=== PATIENT | female | born 1955 | race Caucasian/White ===

== ENCOUNTER → 2016-07-30 | Outpatient (CLI) | payer BC ==
--- NOTE | 2016-07-30 14:12 | MM ---
Reason for exam: history of breast cancer, conservation therapy. Last mammogram was performed 1 year and 1 month ago. History: Patient is postmenopausal, has history of breast cancer at age 59, and had first child at age 36. Family history of breast cancer in mother at age 60, breast cancer in maternal aunt, and breast cancer in maternal cousin. Malignant US biopsy breast VAD RT of the right breast, June 23, 2015. Lumpectomy of the right breast, 2015. Chemotherapy, 2016. Radiation therapy of the right breast, 2016. Physical Findings: Nurse did not find any significant physical abnormalities on exam. MG 3D Diag Mammo W/Cad ABDULAZIZ Bilateral CC and MLO view(s) were taken. Prior study comparison: July 05, 2015, bilateral MR breast bilat wo/w con. June 23, 2015, right breast MG diagnostic mammo RT wo CAD. June 13, 2015, bilateral MG 3d diag mammo w/cad ABDULAZIZ. May 22, 2013, mammogram, performed at [facility]. There are scattered fibroglandular densities. Post surgical and post therapy changes in the right breast. There are a few new punctate calcifications at the lumpectomy site that could represent early dystrophic calcifications and can be reassessed in 6 months. These results were verbally communicated with the patient and result sheet given to the patient on 07/30/16. ASSESSMENT: Probably benign, BI-RAD 3 RECOMMENDATION: Follow-up diagnostic mammogram of the right breast in 6 months. [facility]
== END | disposition home or self-care (01) ==
LOC: RADMAMWWP 12:48
PROVIDERS: ATTEND Radiology Diagnostic Radiology
DX: C50.911 Malignant neoplasm of unspecified site of right female breast (principal)
CPT/HCPCS: G0204; G0279

== ENCOUNTER → 2016-11-13 | Outpatient (CLI) | payer BC ==
--- NOTE | 2016-11-14 07:13 | CT ---
EXAMINATION TYPE: CT chest w con DATE OF EXAM: 11/13/2016 COMPARISON: NONE HISTORY: Hemoptysis, shortness of breath and hoarseness. CT DLP: 320.90 mGycm Automated exposure control for dose reduction was used. CONTRAST: CT scan of the chest is performed with IV Contrast, patient injected with 100 mL of Omnipaque 300. FINDINGS: There has been a previous lumpectomy on the right. There are vascular calcifications. There is a 2.1 cm spiculated mass within the lateral aspect of the right breast. This is likely postsurgic al change. There is atelectasis or consolidation in the right middle lobe. Lungs otherwise clear. There is no significant axillary, internal mammary, mediastinal or hilar adenopathy. There is no pleural or pericardial fluid. The heart is upper limits of normal in size. There is a small hiatal hernia. Visualized upper abdominal structures are otherwise normal. There is degenerative disc disease and mild hypertrophic spondylosis within the dorsal spine. IMPRESSION: 1. STATUS POST RIGHT-SIDED LUMPECTOMY. SPICULATED MASS IS LIKELY POSTSURGICAL SCARRING. 2. ATELECTASIS OR CONSOLIDATION, RIGHT MIDDLE LOBE. 3. SMALL HIATAL HERNIA. 4. DEGENERATIVE CHANGES WITHIN THE SPINE.
== END | disposition home or self-care (01) ==
LOC: RADCTMAIN 19:24
PROVIDERS: ATTEND Internal Medicine Geriatric Medicine
DX: R06.02 Shortness of breath (principal); R06.00 Dyspnea, unspecified; R04.2 Hemoptysis; Z90.11 Acquired absence of right breast and nipple
CPT/HCPCS: 71260; Q9967

== ENCOUNTER → 2017-01-30 | Outpatient (CLI) | payer BC ==
--- NOTE | 2017-01-30 13:39 | MM ---
Reason for exam: follow-up at short interval from prior study. Last mammogram was performed 6 months ago. History: Patient is postmenopausal, has history of breast cancer at age 59, and had first child at age 36. Family history of breast cancer in mother at age 60, breast cancer in maternal aunt, and breast cancer in maternal cousin. Malignant US biopsy breast VAD RT of the right breast, June 23, 2015. Lumpectomy of the right breast, 2016. Chemotherapy, 2016. Radiation therapy of the right breast, 2016. Physical Findings: Nurse did not find any significant physical abnormalities on exam. MG 3D Diag Mammo W/Cad RT CC, ML, and XCCL view(s) were taken of the right breast. Prior study comparison: July 30, 2016, bilateral MG 3d diag mammo w/cad ABDULAZIZ. June 23, 2015, right breast MG diagnostic mammo RT wo CAD. There are scattered fibroglandular densities. Post surgical and post therapy changes in the right breast. Post surgical scar far posterior upper outer quadrant. Surgical clip are present with stable punctate calcifications noted to have been new on 07/30/16. Additional 6 month follow up recommended. These results were verbally communicated with the patient and result sheet given to the patient on 01/30/17. ASSESSMENT: Probably benign, BI-RAD 3 RECOMMENDATION: Follow-up diagnostic mammogram of both breasts in 6 months.
== END | disposition home or self-care (01) ==
LOC: RADMAMWWP 12:59
PROVIDERS: ATTEND Radiology Diagnostic Radiology
DX: Z08 Encounter for follow-up examination after completed treatment for malignant neoplasm (principal); Z85.3 Personal history of malignant neoplasm of breast
CPT/HCPCS: G0206; G0279

== ENCOUNTER → 2017-07-31 | Outpatient (CLI) | payer BC ==
--- NOTE | 2017-07-31 13:47 | MM ---
Reason for exam: follow-up at short interval from prior study. Last mammogram was performed 6 months ago. History: Patient is postmenopausal, has history of breast cancer at age 59, and had first child at age 36. Family history of breast cancer in mother at age 60, breast cancer in maternal aunt, and breast cancer in maternal cousin. Malignant US biopsy breast VAD RT of the right breast, June 23, 2015. Lumpectomy of the right breast, 2015. Chemotherapy, 2016. Radiation therapy of the right breast, 2016. Physical Findings: Nurse did not find any significant physical abnormalities on exam. MG 3D Diag Mammo W/Cad ABDULAZIZ Bilateral CC and MLO view(s) were taken. Prior study comparison: January 30, 2017, right breast MG 3d diag mammo w/cad RT. July 30, 2016, bilateral MG 3d diag mammo w/cad ABDULAZIZ. There are scattered fibroglandular densities. Mid skin thickening right breast, stable. Scar marker. Post surgical changes right breast. No significant new findings when compared with previous films. These results were verbally communicated with the patient and result sheet given to the patient on 07/31/17. ASSESSMENT: Benign, BI-RAD 2 RECOMMENDATION: Follow-up diagnostic mammogram of both breasts in 1 year.
== END | disposition home or self-care (01) ==
LOC: RADMAMWWP 13:04
PROVIDERS: ATTEND Radiology Diagnostic Radiology
DX: C50.911 Malignant neoplasm of unspecified site of right female breast (principal)
CPT/HCPCS: 77066; G0279

== ENCOUNTER → 2018-08-01 | Outpatient (CLI) | payer BC ==
--- NOTE | 2018-08-01 12:03 | MM ---
Reason for exam: additional evaluation requested from prior study. Last mammogram was performed 1 year ago. History: Patient is postmenopausal, has history of breast cancer at age 59, and had first child at age 36. Family history of breast cancer in mother at age 60, breast cancer in maternal aunt, and breast cancer in maternal cousin. Malignant US biopsy breast VAD RT of the right breast, June 23, 2015. Lumpectomy of the right breast, 2016. Chemotherapy, 2016. Radiation therapy of the right breast, 2016. Physical Findings: Nurse did not find any significant physical abnormalities on exam. MG 3D Diag Mammo W/Cad ABDULAZIZ Bilateral CC and MLO view(s) were taken. XCCL view(s) were taken of the right breast. Prior study comparison: July 31, 2017, bilateral MG 3d diag mammo w/cad ABDULAZIZ. January 30, 2017, right breast MG 3d diag mammo w/cad RT. The breast tissue is heterogeneously dense. This may lower the sensitivity of mammography. Stable post operative changes in the right breast. No significant new findings when compared with previous films. These results were verbally communicated with the patient and result sheet given to the patient on 08/01/18. ASSESSMENT: Benign, BI-RAD 2 RECOMMENDATION: Follow-up diagnostic mammogram of both breasts in 1 year.
--- NOTE | 2018-08-01 12:35 | BD ---
EXAMINATION TYPE: Axial Bone Density DATE OF EXAM: 08/01/2018 COMPARISON: NONE CLINICAL HISTORY: Height: 5 FT 1/4 IN Weight: 178 FRAX RISK QUESTIONS: RISK FACTORS HISTORY OF: Active: YES Postmenopausal woman: AGE 49-49 Lost more than 2 inches in height since high school: YES MEDICATIONS: Additional Medications: PANTOPRAZOLE, METOPROLOL, SIMVASTATIN, FLUOXETINE HCL Additional History: EXAM MEASUREMENTS: Bone mineral densitometry was performed using the [employer] System. Bone mineral density as measured about the Lumbar spine is: ----- L1-L4(G/cm2): 1.276 T Score Values are as follows: ----- L2: 1.1 ----- L3: 1.2 ----- L4: 0.1 ----- L1-L4: 0.8 Bone mineral density about the R hip (g/cm2): 0.932 Bone mineral density about the L hip (g/cm2): 0.943 T Score values are as follows: -----R Neck: -0.7 -----L Neck: -0.8 -----R Total: -1.1 -----L Total: -0.8 BASELINE IMPRESSION: No evidence for osteoporosis or osteopenia. NOTE: T-SCORE=SD OF THE YOUNG ADULT MEAN.
== END | disposition home or self-care (01) ==
LOC: RADMAMWWP 09:57
PROVIDERS: ATTEND Radiology Diagnostic Radiology
DX: Z08 Encounter for follow-up examination after completed treatment for malignant neoplasm (principal); M81.0 Age-related osteoporosis without current pathological fracture; Z85.3 Personal history of malignant neoplasm of breast
CPT/HCPCS: 77062; 77066; 77080

== ENCOUNTER → 2019-10-08 | Outpatient (CLI) | payer BC ==
--- NOTE | 2019-10-12 08:31 | MM ---
Reason for exam: additional evaluation requested from prior study. Last mammogram was performed 1 year and 2 months ago. History: Patient is postmenopausal, has history of breast cancer at age 59, and had first child at age 36. Family history of breast cancer in mother at age 60, breast cancer in maternal aunt, and breast cancer in maternal cousin. Malignant US biopsy breast VAD RT of the right breast, June 23, 2015. Lumpectomy of the right breast, 2016. Chemotherapy, 2016. Radiation therapy of the right breast, 2016. Physical Findings: Nurse did not find any significant physical abnormalities on exam. MG 3D Diag Mammo W/Cad ABDULAZIZ Bilateral CC and MLO view(s) were taken. Prior study comparison: August 01, 2018, bilateral MG 3d diag mammo w/cad ABDULAZIZ. July 31, 2017, bilateral MG 3d diag mammo w/cad ABDULAZIZ. The breast tissue is heterogeneously dense. This may lower the sensitivity of mammography. Finding: Architectural distortion in the upper outer quadrant, posterior position of the right breast consistent with known excisional changes. There is no discrete abnormality. These results were verbally communicated with the patient and result sheet given to the patient on 10/08/19. ASSESSMENT: Benign, BI-RAD 2 RECOMMENDATION: Follow-up diagnostic mammogram of both breasts in 1 year.
== END | disposition home or self-care (01) ==
LOC: RADMAMWWP 13:35
PROVIDERS: ATTEND Internal Medicine Geriatric Medicine
DX: C50.911 Malignant neoplasm of unspecified site of right female breast (principal)
CPT/HCPCS: 77062; 77066

== ENCOUNTER → 2019-10-20 | Outpatient (CLI) | payer BC ==
--- NOTE | 2019-10-21 07:54 | CTL ---
EXAMINATION TYPE: CT Low Dose Lung DATE OF EXAM ORDERED: 10/20/2019 HISTORY: Personal history tobacco use, nicotine dependence. Lung cancer screening CT DLP: 83.[address] CTDI: 2.4 mGy Automated exposure control for dose reduction was used. SCREENING VISIT: 1 COMPARISON: Prior chest CT 11/13/2016 TECHNIQUE: Low dose computed tomography scan was performed through the chest at 1 mm thick sections a nd reconstructed images in the coronal plane at [address] DIAGNOSTIC QUALITY: Satisfactory FINDINGS: LUNG NODULES: None. LUNGS: COPD: Severity: None Fibrosis: Severity: Mild and stable Lymph nodes: Normal Other findings: Aortic calcification consistent with atherosclerotic change. RIGHT PLEURAL SPACE: Effusion: None Calcification: None Thickening: Subpleural thickening along the anterior right upper lobe is a stable finding and may be due to post treatment change. Pneumothorax: None LEFT PLEURAL SPACE: Effusion: None Calcification: None Thickening: None Pneumothorax: None HEART: Heart Size: Normal with possible mitral annular calcification Coronary calcification: Moderate Pericardial effusion: None OTHER FINDINGS: Upper abdomen: Small hiatal hernia is present. Colonic interposition anterior to the liver is present . Bony thorax: Multilevel thoracic spondylosis is present. Supraclavicular region: Unremarkable Other: Surgical clips present in the right axilla IMPRESSION: Negative FOLLOW UP CT CHEST RECOMMENDATION: [address] LUNG RAD: 1
== END | disposition home or self-care (01) ==
LOC: RADCTMAIN 17:56
PROVIDERS: ATTEND Internal Medicine Geriatric Medicine
DX: Z12.2 Encounter for screening for malignant neoplasm of respiratory organs (principal); F17.210 Nicotine dependence, cigarettes, uncomplicated

== ENCOUNTER → 2020-10-10 | Outpatient (CLI) | payer BC ==
--- NOTE | 2020-10-11 08:34 | MM ---
Reason for exam: additional evaluation requested from prior study. Last mammogram was performed 1 year ago. History: Patient is postmenopausal, has history of breast cancer at age 59, and had first child at age 36. Family history of breast cancer in mother at age 60, breast cancer in maternal aunt at age 60, and breast cancer in maternal cousin. Malignant US biopsy breast VAD RT of the right breast, June 23, 2015. Lumpectomy of the right breast, 2015. Chemotherapy, 2016. Radiation therapy of the right breast, 2016. Physical Findings: Nurse did not find any significant physical abnormalities on exam. MG 3D Diag Mammo W/Cad ABDULAZIZ Bilateral CC and MLO view(s) were taken. Prior study comparison: October 08, 2019, bilateral MG 3d diag mammo w/cad ABDULAZIZ. August 01, 2018, bilateral MG 3d diag mammo w/cad ABDULAZIZ. There are scattered fibroglandular densities. Post operative changes right breast. These results were verbally communicated with the patient and result sheet given to the patient on 10/10/20. ASSESSMENT: Benign, BI-RAD 2 RECOMMENDATION: Follow-up diagnostic mammogram of both breasts in 1 year.
== END | disposition home or self-care (01) ==
LOC: RADMAMWWP 14:49
PROVIDERS: ATTEND Internal Medicine Geriatric Medicine
DX: N64.89 Other specified disorders of breast (principal); Z78.0 Asymptomatic menopausal state; Z80.3 Family history of malignant neoplasm of breast; Z85.3 Personal history of malignant neoplasm of breast
CPT/HCPCS: 77062; 77066

== ENCOUNTER → 2021-02-03 | Outpatient (CLI) | payer BC ==
--- NOTE | 2021-02-04 18:02 | CTL ---
EXAMINATION TYPE: CT Low Dose Lung DATE OF EXAM ORDERED: 02/03/2021 HISTORY: 30 pack-year smoking history. Lung cancer screening CT DLP: 89.[address] CTDI: 2.6 mGy Automated exposure control for dose reduction was used. COMPARISON: CT lung cancer screening 10/19/2020 TECHNIQUE: Low dose computed tomography scan was performed through the chest at 1 mm thick sections a nd reconstructed images in multiple planes at 1 mm and [address] DIAGNOSTIC QUALITY: Satisfactory FINDINGS: LUNG NODULES: None. Central airways are normal course and caliber. Small amount of debris/mucus along the left lateral mi d-tracheal wall. No focal consolidations, pleural effusions, or pneumothorax. Linear densities within the right middle lobe which likely represents subsegmental atelectasis and/or scarring, similar to p rior. Cardiac size appears within normal limits. No pericardial effusion. Moderate coronary artery calcific ations and/or stents. Moderate atherosclerotic calcifications of the aortic arch and descending thora cic aorta without aneurysm. Main pulmonary arteries are of normal caliber. Mitral annular calcificati ons and aortic annular calcifications are present. No mediastinal or axillary lymphadenopathy. Limited views of the upper abdomen demonstrate small hiatal hernia and are otherwise unremarkable. Mo derate to advanced multilevel degenerative changes of the visualized thoracic spine, which appears si milar to prior. No vertebral body height loss. IMPRESSION: 1. No pulmonary nodules. 2. Moderate coronary artery calcifications. CT LUNG RAD AND CT CHEST RECOMMENDATION: Lung-RADS Category 1s - negative. Continued annual lung canc er screening with low-dose CT chest S Modifier (other clinically significant findings): Moderate coronary artery calcifications
== END | disposition home or self-care (01) ==
LOC: RADCTMAIN 17:21
PROVIDERS: ATTEND Internal Medicine Geriatric Medicine
DX: Z12.2 Encounter for screening for malignant neoplasm of respiratory organs (principal); Z87.891 Personal history of nicotine dependence; I25.10 Atherosclerotic heart disease of native coronary artery without angina pectoris
CPT/HCPCS: 71271

== ENCOUNTER → 2021-02-22 | Outpatient (CLI) | payer BC ==
--- NOTE | 2021-02-22 17:04 | ECHOS ---
STRESS ECHOCARDIOGRAM DATE OF PROCEDURE: 02/22/2021 INDICATIONS: Chest pain. BASELINE HEART RATE: 67 BASELINE BLOOD PRESSURE: 143/86 MAXIMUM HEART RATE: 139 MAXIMUM BLOOD PRESSURE: 176/84 85% MPHR: 133 100% MPHR: 156 METS: 5.7 MAXIMUM STAGE REACHED: II TOTAL EXERCISE TIME: 6 min CLINICAL INFORMATION: STRESS DATA: Heart rate 67, pressure is 143/98 mmHg. Baseline EKG showed sinus mechanism. The patient exercised on the treadmill according to [employer] protocol for a total of 6 minutes and achieved 5.7 METS. Max heart rate was 139, which is about 89% of maximum predicted heart rate, and maximum blood pressure was 176/84 mmHg. Clinically the patient did not have any symptoms of chest pain or chest discomfort and the EKG did not show any significant ST or T-wave abnormalities concerning for ischemia. ANALYSIS: Echocardiogram images from parasternal long axis view, parasternal short axis view, apical 4-chamber and apical 2-chamber views were obtained as the baseline images at the peak of the heart rate as well as on recovery. The echocardiogram images showed good augmentation in the left ventricular systolic function without any evidence of wall motion abnormalities concerning for ischemia. CONCLUSION: 1. Good exercise tolerance. 2. Normal EKG in response to exercise. 3. Normal echocardiogram in response to exercise. 4. Essentially normal stress echocardiogram for the patient. MMODL / IJN: [id number] /
== END | disposition home or self-care (01) ==
LOC: RADNMMAIN 09:12
PROVIDERS: ATTEND Internal Medicine Geriatric Medicine
DX: R07.9 Chest pain, unspecified (principal)
CPT/HCPCS: 93351

== ENCOUNTER → 2021-10-25 | Outpatient (CLI) | payer MEDICARE ==
--- NOTE | 2021-10-25 14:44 | MM ---
Reason for Exam: Additional evaluation requested from prior study. Last mammogram was performed 1 year(s) and 1 month(s) ago. Patient History: Menarche at age 12. First Full-Term at age 36. Late child-bearing (after 30). Postmenopausal. Breast cancer, right, age 59. 2016, Lumpectomy on the Right side. 06/23/2015, Malignant Core Biopsy on the right side. 2016, Chemotherapy. 2016, Radiation Therapy on the right side. Maternal cousin had breast cancer. Maternal aunt had breast cancer, age 60. Mother had breast cancer, age 60. Prior Study Comparison: 01/30/2017 Right Diagnostic Mammogram, [facility]. 07/31/2017 Bilateral Diagnostic Mammogram, [facility]. 08/01/2018 Bilateral Diagnostic Mammogram, [facility]. 10/08/2019 Bilateral Diagnostic Mammogram, [facility]. 10/10/2020 Bilateral Diagnostic Mammogram, [facility]. Tissue Density: There are scattered fibroglandular densities. Findings: Analyzed By CAD. Post treatment changes to the right breast are redemonstrated posterior upper outer aspect. Benign-appearing left axillary lymph nodes are redemonstrated. No suspicious new mass or worrisome cluster of microcalcification in either breast. Overall Assessment: Benign, BI-RAD 2 Management: Screening Mammogram of both breasts in 1 year. A clinical breast exam by your physician is recommended on an annual basis and results should be correlated with mammographic findings. This exam should not preclude additional follow-up of suspicious palpable abnormalities. Results were given to the patient verbally at the time of exam. Electronically signed and approved by: Cristhian Grimes M.D.
== END | disposition home or self-care (01) ==
LOC: RADMAMWWP 14:15
PROVIDERS: ATTEND Internal Medicine Geriatric Medicine
DX: R92.8 Other abnormal and inconclusive findings on diagnostic imaging of breast (principal); Z78.0 Asymptomatic menopausal state; Z80.3 Family history of malignant neoplasm of breast
CPT/HCPCS: 77066; G0279; 77062

== ENCOUNTER → 2022-11-27 | Outpatient (CLI) | payer MEDICARE, BC ==
--- NOTE | 2022-11-28 08:06 | MM ---
Reason for Exam: Screening (asymptomatic). Last mammogram was performed 1 year(s) and 1 month(s) ago. Patient History: Menarche at age 12. First Full-Term at age 36. Late child-bearing (after 30). Postmenopausal. Breast cancer, right, age 59. Previous chest radiation therapy. Previous chemotherapy. 2016, Lumpectomy on the Right side. 06/23/2015, Malignant Core Biopsy on the right side. 2016, Chemotherapy. 2016, Radiation Therapy on the right side. Maternal cousin had breast cancer, age 60. Maternal aunt had breast cancer, age 60. Mother had breast cancer, age 60. Prior Study Comparison: 10/08/2019 Bilateral Diagnostic Mammogram, [facility]. 10/10/2020 Bilateral Diagnostic Mammogram, [facility]. 10/25/2021 Bilateral MG 3D diag mammo w/cad ABDULAZIZ, [facility]. Tissue Density: There are scattered fibroglandular densities. Findings: Analyzed By CAD. There is no suspicious group of microcalcifications or new suspicious mass in either breast. Post lumpectomy changes upper outer quadrant right breast unchanged. Overall Assessment: Benign, BI-RAD 2 Management: Screening Mammogram of both breasts in 1 year. . Patient should continue monthly self-breast exams. A clinical breast exam by your physician is recommended on an annual basis. This exam should not preclude additional follow-up of suspicious palpable abnormalities. Note on Rama scores and lifetime risk: 1. A Rama score greater than 3% is considered moderate risk. If this is the case, consider specialist referral to assess eligibility for a risk reducing agent. 2. If overall lifetime risk for the development of breast cancer is 20% or higher, the patient may qualify for future screening with alternating mammogram and breast MRI. Electronically signed and approved by: Barron Paz M.D. Radiologis
== END | disposition home or self-care (01) ==
LOC: RADMAMWWP 10:21
PROVIDERS: ATTEND Internal Medicine Geriatric Medicine
DX: Z12.31 Encounter for screening mammogram for malignant neoplasm of breast (principal); Z78.0 Asymptomatic menopausal state; Z80.3 Family history of malignant neoplasm of breast; Z85.3 Personal history of malignant neoplasm of breast
CPT/HCPCS: 77063; 77067

== ENCOUNTER → 2023-12-25 | Outpatient (CLI) | payer MEDICARE, BC ==
[2023-12-25 15:35] LABS: Basophils # (A) 0.03 X 10*3/uL (0.00-0.10); Basophils % (A) 0.6 %; Eosinophils # (A) 0.25 X 10*3/uL (0.04-0.35); Eosinophils % (A) 5.1 %; HCT 38.4 % (37.2-46.3); HGB 12.7 g/dL (12.0-15.0); Lymphocytes # (A) 1.01 X 10*3/uL (0.90-5.00); Lymphocytes % (A) 20.5 %; MCHC 33.1 g/dL (32.0-37.0); MCV 90.6 FL (80.0-97.0); Monocytes # (A) 0.35 X 10*3/uL (0.20-1.00); Monocytes % (A) 7.1 %; NRBC Per 100 WBC 0 X 10*3/uL (0.00-0.01); Neutrophils # (A) 3.28 X 10*3/uL (1.80-7.70); Neutrophils % (A) 66.5 %; Platelet Count 275 X 10*3/uL (140-440); RBC 4.24 X 10*6/uL (4.10-5.20); RDW 12.2 % (11.5-14.5); WBC 4.93 X 10*3/uL (4.50-10.00)
[2023-12-25 15:57] LABS: ALT 24 U/L (8-44); AST 23 U/L (13-35); Albumin 4.7 g/dL (3.8-4.9); Albumin/Globulin Ratio 2.24 Ratio (1.60-3.17); Alkaline Phosphatase 86 U/L (41-126); BUN/Creat Ratio 18.86 Ratio (12.00-20.00); Blood Urea Nitrogen 13.2 mg/dL (9.0-27.0); Calcium 9.6 mg/dL (8.7-10.3); Chloride 99 mmol/L (96-109); Chol/HDL Ratio 4.11 Ratio; Globulin 2.1 g/dL (1.6-3.3); Glucose 109 mg/dL (70-110); LDL Cholesterol,Calculated 141.2 mg/dL (0.0-131.0); Potassium 4.8 mmol/L (3.5-5.5); Sodium 136 mmol/L (135-145); T4, Free (Free Thyroxine) 0.98 ng/dL (0.80-1.80); Total Bilirubin 0.5 mg/dL (0.3-1.2); Total Protein 6.8 g/dL (6.2-8.2)
--- NOTE | 2023-12-27 16:38 | BD ---
EXAMINATION TYPE: Axial Bone Density DATE OF EXAM: 12/25/2023 CLINICAL HISTORY: 68 years old Female. ICD-10 CODE: M81.0 Age related osteoporosis Height: 5 ft Weight: 175 FRAX RISK QUESTIONS: Alcohol (3 or more units per day): no Family History (Parent hip fracture): no Glucocorticoids (More than 3mos): no (Ex: prednisone, prednisolone, methylprednisolone, dexamethasone, and hydrocortisone). History of Fracture in Adulthood: no Secondary Osteoporosis: 1. Type 1 Diabetes: no 2. Hyperthyroidism: no 3. Menopause before 45: no 4. Malnutrition: no 5. Chronic liver disease: no Rheumatoid Arthritis: no Current Tobacco Use: vape RISK FACTORS HISTORY OF: Surgery to Spine/Hip(right/left)/Wrist (right/left): no MEDICATIONS: Thyroid Medications: none Osteoporosis Medications: none EXAM MEASUREMENTS: Bone mineral densitometry was performed using the [employer] System. Bone mineral density as measured about the Lumbar spine is: ----- L1-L4(G/cm2): 1.387 T Score Values are as follows: ----- L1: 2.2 ----- L2: 1.3 ----- L3: 1.6 ----- L4: 1.6 ----- L1-L4: 1.7 Z Score Values are as follows: ----- L1: 3.4 ----- L2: 2.5 ----- L3: 2.7 ----- L4: 2.8 ----- L1-L4: 2.9 Bone mineral density has: increased 8.7 % since study of: 2019 Bone mineral density about the R hip (g/cm2): 0.844 Bone mineral density about the L hip (g/cm2): 0.854 T Score values are as follows: -----R Neck: -1.4 -----L Neck: -1.3 -----R Total: -1.3 -----L Total: -0.9 Z Score values are as follows: -----R Neck: -0.1 -----L Neck: -0.1 -----R Total: -0.3 -----L Total: 0.1 Bone mineral density has: decreased -2.4 % since study of: 2019 FRAX%s: The graph provided illustrates a 8.8 % chance for a major osteoporotic fx and a 1.6 % chanc e for the hips probability for fx in 10 years time. IMPRESSION: Osteopenia (T Score between -2.5 and -1). There is slightly increased risk of fracture and the patient may be considered for treatment. Re-Screen 2-5 years. NOTE: T-SCORE=SD OF THE YOUNG ADULT MEAN.
--- NOTE | 2023-12-29 12:07 | MM ---
Reason for Exam: Screening (asymptomatic). Last mammogram was performed 1 year(s) and 1 month(s) ago. Patient History: Menarche at age 12. First Full-Term at age 36. Late child-bearing (after 30). Postmenopausal. Breast cancer, right, age 59. Previous chest radiation therapy. Previous chemotherapy. 2016, Lumpectomy on the Right side. 06/23/2015, Malignant Core Biopsy on the right side. 2016, Chemotherapy. 2016, Radiation Therapy on the right side. Maternal cousin had breast cancer, age 60. Maternal aunt had breast cancer, age 60. Mother had breast cancer, age 60. Prior Study Comparison: 10/10/2020 Bilateral Diagnostic Mammogram, [facility]. 10/25/2021 Bilateral MG 3D diag mammo w/cad ABDULAZIZ, [facility]. 11/27/2022 Bilateral MG 3D screening mammo w/cad, [facility]. Tissue Density: There are scattered areas of fibroglandular density. Findings: Analyzed By CAD. Right breast surgical clips. Right breast: There is no suspicious group of microcalcifications or new suspicious mass. Left breast: There is no suspicious group of microcalcifications or new suspicious mass. Overall Assessment: Benign, BI-RAD 2 Management: Screening Mammogram of both breasts in [address] [facility] will attempt to contact patient to return for supplemental views and ultrasound if indicated. Patient should continue monthly self-breast exams. A clinical breast exam by your physician is recommended on an annual basis. This exam should not preclude additional follow-up of suspicious palpable abnormalities. Note on Rama scores and lifetime risk: 1. A Rama score greater than 3% is considered moderate risk. If this is the case, consider specialist referral to assess eligibility for a risk reducing agent. 2. If overall lifetime risk for the development of breast cancer is 20% or higher, the patient may qualify for future screening with alternating mammogram and breast MRI. Electronically signed and approved by: Abhishek Lopes DO
== END | disposition home or self-care (01) ==
LOC: RADMAMWWP 11:16
PROVIDERS: ATTEND Internal Medicine Geriatric Medicine
DX: Z12.31 Encounter for screening mammogram for malignant neoplasm of breast (principal); R92.323 Mammographic fibroglandular density, bilateral breasts; M81.0 Age-related osteoporosis without current pathological fracture; I10 Essential (primary) hypertension; R73.9 Hyperglycemia, unspecified; E78.2 Mixed hyperlipidemia; R94.6 Abnormal results of thyroid function studies; M85.89 Other specified disorders of bone density and structure, multiple sites; Z78.0 Asymptomatic menopausal state; Z80.3 Family history of malignant neoplasm of breast; Z92.3 Personal history of irradiation
CPT/HCPCS: 36415; 77063; 77067; 77080; 80053; 80061; 83036; 84439; 84443; 85025

== ENCOUNTER → 2024-01-02 | Outpatient (CLI) | payer MEDICARE, BC ==
[2024-01-02 14:52] VITALS: BP 138/81; PULSE 70; RESP 12; TEMP 98
--- NOTE | 2024-01-02 15:34 | P.SLEEP ---
History of Present Illness DATE: 01/02/2024 CONSULTATION/NEW PATIENT EVALUATION HISTORY OF PRESENT ILLNESS/SLEEP-WAKE EVALUATION: 68-year-old lady had been e valuated in the sleep center for insomnia and possible obstructive sleep apnea hypopnea syndrome. SLEEP SCHEDULE: Usually sleep schedule from 11 PM to 10 AM, but patient falling asleep only around 3 AM. FALLING ASLEEP: Significant difficulties with falling asleep, patient used to read in bedroom for several hours before falling asleep. DURING SLEEP: Positive history of snoring and multiple awakenings from sleep up to 5 times with episodes of nocturia. No history of hypnogogical hallucinations, sleep paralysis, or cataplexy. DURING THE DAY/WAKE STATE: In the morning patient wake up tired. [place] sleepiness scale is 6. Patient takes 1 nap around 3 PM. PAST MEDICAL HISTORY: Hypertension, right breast cancer, history of depression. PAST SURGICAL HISTORY: Right breast lumpectomy, radiation and chemotherapy for cancer. MEDICATIONS: Please see below. SOCIAL HISTORY: Please see below. FAMILY HISTORY: Heart problems, asthma, high blood pressure, cancer. REVIEW OF SYSTEMS: Snoring, difficulties to initiate sleep, multiple awakenings from sleep, sleepiness and tiredness during the day. No fevers. No double vision. No recent chest pain. No shortness of breath. No abdominal pain. No bleeding episodes. No blood in urine. No seizure episodes. PHYSICAL EXAMINATION: GENERAL: A pleasant patient without any distress. VITAL SIGNS: Please see below, weight 178 pounds, BMI 33.6. HEENT: PERRLA, EOMI. Evaluation of oropharynx showed tongue protrudes midline, low position of soft palate Mallampati 4. NECK: Supple. No JVD. Thyroid is not palpable. 16 inches in circumference. LUNGS: Clear to percussion and to auscultation. Good air exchange. No wheezing or rhonchi. HEART: S1, S2 regular. No murmurs, gallops or rubs. ABDOMEN: Soft and nontender. Bowel sounds are present. No organomegaly appreciated. EXTREMITIES: No clubbing or cyanosis. BIKE DESIGNER: Awake, alert, and oriented x3. Cranial nerves 2 to 7 intact. There is no fasciculation or atrophy noted. No focal deficits observed. ASSESSMENT: 1. Snoring, multiple awakenings from sleep, extremely low position of soft palate Mallampati 4, wide neck 16 inches in circumference. Obstructive sleep apnea hypopnea syndrome. 2. Psychophysiological insomnia with possible sleep delay syndrome. 3. Hypertension. 4. Acid reflux. 5 hyperlipidemia. 6 . History of depression. 7. History of right breast cancer, s/p lumpectomy, radiation therapy and chemotherapy. 8. Mild obesity, BMI 33.6. PLAN: 1. Polysomnography for evaluation of patient's breathing during sleep. 2. Psychological techniques for treatment of insomnia including stimulus control, paradoxical intention, worry time, no watching clock have been discussed with patient. 3. Preferable position during sleep on the side. 4. No driving if patient feels any sleepiness. Patient is aware of civil and criminal liability for unsafe driving. 5. To increase exposure to the sunlight in the morning after awakenings and avoid especially bluelight in the evening. 6. Watching weight. 7. Following plan after reading sleep study. Thank you very much for referring this patient for consultation. Sincerely, Ranulfo Ocampo MD, PhD, FAASM. Diplomat of [place] [employer], Sleep Medicine Board by [place] [employer] [employer] Ent Physician of [facility] cc: Axel Orantes MD Past Medical History Past Medical History: Cancer, GERD/Reflux, Hyperlipidemia, Hypertension Additional Past Medical History / Comment(s): RIGHT BREAST CANCER (DX JUNE 2015) CHEMO AND RADIATION THERAPY., STATES FREQUENT NAUSEA. History of Any Multi-Drug Resistant Organisms: None Reported Past Surgical History: Breast Surgery Additional Past Surgical History / Comment(s): lumpectomy right breast Past Anesthesia/Blood Transfusion Reactions: No Reported Reaction Additional Past Anesthesia/Blood Transfusion Reaction / Comment(s): NEVER RECEIVED BLOOD TRANSFUSION Past Psychological History: Depression Additional Psychological History / Comment(s): . Smoking Status: Former smoker, Vaper Past Alcohol Use History: Daily Additional Past Alcohol Use History / Comment(s): QUIT SMOKING APPROX 15 YEARS AGO., OCCASIONAL E-CIGARETTE. SMOKED 1/2 PPD FOR 20 YEARS. DRINKS 2 GLASSES OF WINE DAILY. Past Drug Use History: None Reported - Past Family History Mother Family Medical History: Cancer Additional Family Medical History / Comment(s): BREAST CANCER Father Additional Family Medical History / Comment(s): Father at age 82 from possible suicide with history of depression. Brother(s) Family Medical History: No Reported History Additional Family Medical History / Comment(s): . Medications and Allergies Home Medications Medication Instructions Recorded Confirmed Type FLUoxetine HCL [PROzac] 40 mg PO HS 10/21/15 01/02/24 History Metoprolol Succinate [Toprol XL] 25 mg PO HS 10/21/15 01/02/24 History Pantoprazole Sodium [Protonix] 40 mg PO HS 10/21/15 01/02/24 History Simvastatin [Zocor] 40 mg PO HS 10/21/15 01/02/24 History Allergies Allergy/AdvReac Type Severity Reaction Status Date / Time No Known Allergies Allergy Verified 04/04/16 12:56 Physical Exam Vitals: Vital Signs Temp Pulse Resp BP Pulse Ox 01/02/24 14:47 98.0 F 70 12 138/81 95 Intake and Output 01/02/24 01/02/24 01/02/24 06:59 14:59 22:59 Other: Weight 80.739 kg Sleep Note - Sleep Data ESS Total: 6 - Sleep Note Sleep Note: Temperature: 98.0 F Pulse Rate: 70 Respiratory Rate: 12 Blood Pressure: 138/81 SpO2: 95 Height: 5 ft 1 in Weight: 80.739 kg BMI: Neck Circumference: 16
== END ==
LOC: 3 N SLEEP 14:20
PROVIDERS: ATTEND Internal Medicine
CPT/HCPCS: 99211

== ENCOUNTER 2024-01-08 19:46 | Outpatient (CLI) | payer MEDICARE, BC ==
--- NOTE | 2024-01-09 12:24 | P.PCN ---
Description of Procedure: POLYSOMNOGRAPHY REPORT PROCEDURE(S)/DATE(S): Polysomnography 01/08/2024 CLINICAL: Patient has been seen in the sleep center for evaluation of obstructive sleep apnea-hypopnea syndrome. Please see my consultation. Sleep study has been done for evaluation of patient breathing during the sleep. PROCEDURE: The standard montage for clinical polysomnography included the electroencephalogram, the electrooculogram, the mentalis surface electromyography and Lead II cardiography. The respiratory battery consisted of measurements of nasal/buccal air flow, pressure transducer measurements from nose, thoracic and/or abdominal effort and intercostal surface electromyography. Video monitoring has been done to check for any parasomnia events. Nocturnal oxyhemoglobin saturations were obtained by finger oximetry. Step-sunshine titration with positive airway pressure was utilized to control the respiratory events, if necessary. RESULTS: During the diagnostic sleep study sleep efficiency was decreased to 57.4%. Latency to sleep onset was significantly prolonged to 67.0 min. Sleep architecture showed stage NI was normal 6.4%, Delta sleep was was normal 12.6%, REM sleep was high at 30.8%. Respiratory channel showed 0 obstructive apneas, 0 mixed apneas, 6 central apneas, 55 hypopneas with lowest oxygen level 74%. Total apnea hypopnea index was 16.2. Heart rate was in the range between 64 and 73, average 68. EMG showed 0 periodic limb movements per hour. IMPRESSIONS: 1. Moderate obstructive sleep apnea hypopnea syndrome. 2. No significant periodic limb movements have been documented. Please see other impressions from consultation PLAN: 1. The patient will have PAP titration for correction of respiratory abnormalities during the sleep. 2. Losing weight. 3. Sleep hygiene with regular time in bed for at least 7-1/2 hours. 4. No driving if feeling sleepiness. Thank you very much for allowing me to participate in the management of your patient. Sincerely, Ranulfo Ocampo MD, PhD, FAASM. Diplomat of [place] [employer], Sleep Medicine Board by [place] [employer] General Teller of [facility] [place] cc: Axel Orantes MD
== END 2024-01-09 05:35 | disposition home or self-care (01) ==
LOC: 3 N SLEEP 19:46
PROVIDERS: ATTEND Internal Medicine
CPT/HCPCS: 95810

== ENCOUNTER 2024-01-21 19:47 | Outpatient (CLI) | payer MEDICARE, BC ==
--- NOTE | 2024-01-23 11:26 | P.PCN ---
Description of Procedure: CLINICAL: Titration with positive air pressure has been done for correction of respiratory abnormalities during sleep. DESCRIPTION OF PROCEDURE: The standard montage for clinical polysomnography included the electroencephalogram, the electrocardiogram, the mentalis surface electromyography and Lead II cardiography. The respiratory battery consisted of measurements of nasal /buccal air flow, pressure transducer measurements from the nose, thoracic and /or abdominal effort and intercostal surface electromyography. Video monitoring has been done to check for any parasomnia events. Nocturnal oxyhemoglobin saturations were obtained by finger oximetry. Step-sunshine titration with positive airway pressure was utilized to control respiratory events. Raw data of sleep recording has been reviewed and is adequate. RESULTS: Sleep efficiency was extremely short 34.6%. Latency to sleep onset was significantly prolonged to 110.5 minutes.]. Sleep architecture showed stage N1 was prolonged to 13.3%, Delta sleep was absent 0%, REM sleep was normal 27.3%. Heart rate was minimum 61 BPM, maximum 69 BPM, average 64 BPM. EMG showed 37.3 periodic limb movements per hour with 3 micriarousals per hour. PAP titration have been done with CPAP up to the pressure 11 cm H2O. The best results were at the pressure 11 cm H2O. Apnea hypopnea index reduced to 0. IMPRESSION: 1. Obstructive sleep apnea hypopnea syndrome on controle with PAP treatment. 2. Significant periodic limb movements have been documented. Please see other impressions from consultation. PLAN: 1. The patient will have treatment with positive air pressure equipment with the level of pressure AutoPAP 5-11 cm H2O and should use it every night for the whole night. 2. Watching and losing weight. 3. Sleep hygiene with regular time in bed for at least 8 hours. 4. No driving if feeling any sleepiness. 5. I will see the patient for follow up visit to explain the results of the test, recommendations, check compliance with treatment and make any necessary adjustment related to mask fitting, pressure and humidification. 6. Please check iron profile including ferritin level. Low level of iron may increase risk for periodic limb movements Thank you very much for allowing me to participate in the management of your patient. Sincerely, Ranulfo Ocampo MD, PhD, FAASM Diplomat of [employer] Sleep Medicine Board of [place] [employer] of Internal Medicine Enterprise Software Developer of [facility] [place] cc: Axel Orantes MD
== END 2024-01-22 05:30 | disposition home or self-care (01) ==
LOC: 3 N SLEEP 19:47
PROVIDERS: ATTEND Internal Medicine
CPT/HCPCS: 95811

== ENCOUNTER → 2024-04-02 | Outpatient (CLI) | payer MEDICARE, BC ==
[2024-04-02 11:05] VITALS: BP 151/96; PULSE 70; RESP 16; TEMP 97.8
--- NOTE | 2024-04-02 11:45 | P.PROGSL ---
Subjective DATE: 04/02/2024 FOLLOW UP VISIT. Patient with obstructive sleep apnea hypopnea syndrome return to sleep center for follow-up visit. Recently patient had sleep study which documented obstructive sleep apnea hypopnea syndrome. Patient was initiated on PAP therapy and today is first visit after treatment was started. Patient was able to use PAP equipment every night for the whole night. Patient sleeps better and feels better during the day after starting to use CPAP equipment. The patient does not have significant problems with the mask, PAP pressure and humidification. [place] sleepiness scale is 5. I checked information from PAP unit. PAP unit pressure 5-11, average 10.4 cm H2O. Usage is 100% and 80% for more then 4 hours, average 5.5 hours per night. Leak is 12.5 l/m, which is in acceptable range. Apnea Hypopnea Index is 4.7, which is normal. MEDICATIONS: Have been reviewed, please see below During physical exam: GENERAL: A pleasant patient without any distress. VITAL SIGNS: Please see below, weight 179 pounds. HEENT: PERRLA, EOMI.low position of soft palate, Mallapati 4 . NECK: Supple. No JVD. LUNGS: Clear to percussion and to auscultation. Good air exchange. No wheezing or rhonchi. HEART: S1, S2 regular. ABDOMEN: Soft and nontender.[] EXTREMITIES: No clubbing or cyanosis. ROUTE SALES SPECIALIST: Awake, alert, and oriented x3. No focal deficit. Impressions: 1. Obstructive sleep apnea-hypopnea syndrome. Patient demonstrated great compliance with treatment, benefiting from treatment. 2. History of insomnia with sleep delay. 3. Hypertension. 4. Acid reflux. 5. Hyperlipidemia. 6. History of depression. 7. History of right breast cancer with status post lumpectomy, radiation therapy and chemotherapy. 8. Mild obesity. Plan: 1. Continue using PAP equipment every night for the whole night. 2. To change air filter at least 1-2 times per month. 3. PAP unit should stay lower then position of the head. 4. Advised patient to remove all remaining water from humidifier canister daily and make it dry after each usage. Refill canister with fresh distilled water before each usage. 5. Sleep hygiene with regular time in bed for at least 8 hours. 6. Precautions related to driving. No driving if feel any sleepiness. 7. I will maintain prescription for PAP supplies including mask, tube, filters. 8. Follow up visit in 8 months or earlier if patient has any problems. 9. Watching and losing weight. Thank you very much for allowing me to participate in the management of your patient. Ranulfo Ocampo MD, PhD, FAASM. Diplomat of [place] [employer], Sleep Medicine Board by [place] [employer] Varsity Baseball Coach of [facility] [place] Objective - Vital Signs Vital Signs: Vital Signs Temp 97.8 F 04/02/24 11:04 Pulse 70 04/02/24 11:04 Resp 16 04/02/24 11:04 BP 151/96 04/02/24 11:04 Pulse Ox 98 04/02/24 11:04 FiO2 Intake & Output 04/01/24 04/02/24 04/02/24 18:59 06:59 18:59 Weight 81.193 kg Home Medications: Home Medications Medication Instructions Recorded Confirmed Type FLUoxetine HCL [PROzac] 40 mg PO HS 10/21/15 01/02/24 History Metoprolol Succinate [Toprol XL] 25 mg PO HS 10/21/15 01/02/24 History Pantoprazole Sodium [Protonix] 40 mg PO HS 10/21/15 01/02/24 History Simvastatin [Zocor] 40 mg PO HS 10/21/15 01/02/24 History
== END ==
LOC: 3 N SLEEP 10:34
PROVIDERS: ATTEND Internal Medicine
DX: G47.33 Obstructive sleep apnea (adult) (pediatric) (principal); I10 Essential (primary) hypertension; K21.9 Gastro-esophageal reflux disease without esophagitis; E78.5 Hyperlipidemia, unspecified; E66.9 Obesity, unspecified; Z87.898 Personal history of other specified conditions; Z86.59 Personal history of other mental and behavioral disorders; Z85.3 Personal history of malignant neoplasm of breast; Z90.12 Acquired absence of left breast and nipple; Z92.3 Personal history of irradiation; Z92.21 Personal history of antineoplastic chemotherapy; Z87.891 Personal history of nicotine dependence
CPT/HCPCS: 99212